=== PATIENT | male | born 1980 | race African-American/Black ===

== ENCOUNTER 2019-09-21 07:17 | Emergency (ER) | payer SELFPAY ==
--- NOTE | 2019-09-21 08:01 | ER Document Report ---
HPI - HPI Time Seen by Provider: 09/21/19 08:00 Pain Level: 5 Notes: 30-year-old male presents the ED for evaluation of dysuria with urination 2 days ago. Patient states he had unprotected sexual intercourse with a new partner. Also is reporting dental pain in his right upper mouth that started about a week ago. No zlso-dhw-gybbjsr medications have been tried. Patient has not tried any zgat-nlu-zwldvus medications. Reports he is a non-smoker. Denies fevers, c hills, chest pain,palpitations, shortness of breath, dyspnea, nausea, vomiting, diarrhea, abdominal pain, hematuria,blurred vision, double vision, loss of vision, speech changes, LH, dizziness, syncope, headaches, wheezing, ST, URI, neck pain, weakness, bowel or bladder dysfunction, saddle anesthesia, numbness or tingling in bilateral upper or lower extremities equally, muscle paralysis, weakness in bilateral upper or lower extremities equally or rash. - REPRODUCTIVE Reproductive: DENIES: : Past Medical History - General Information source: Patient - Social History Smoking Status: Current Every Day Smoker Chew tobacco use (# tins/day): No Frequency of alcohol use: Occasional Drug Abuse: Marijuana Family History: Reviewed & Not Pertinent Patient has suicidal ideation: No Patient has homicidal ideation: No Vertical Provider Document - CONSTITUTIONAL Agree With Documented VS: Yes Exam Limitations: No Limitations General Appearance: WD/WN Notes: PHYSICAL EXAMINATION:reviewed vital signs by RN GENERAL: Well-appearing, well-nourished and in no acute distress. HEAD: Atraumatic, normocephalic. EYES: Pupils equal round and reactive to light, extraocular movements intact, sclera anicteric, conjunctiva are normal. ENT: Nares patent, oropharynx clear without exudates. Moist mucous membranes. #2 gingiva with swelling, erythema and induration. No drainage or open wounds. No fluctuance. No facial swelling. Poor oral dentition, right upper jaw with mild dental caries, no definite swelling or effusion. NECK: Normal range of motion, supple without lymphadenopathy LUNGS: Breath sounds clear to auscultation bilaterally and equal. No wheezes rales or rhonchi. HEART: Regular rate and rhythm without murmurs ABDOMEN: Soft, nontender, nondistended abdomen. No guarding, no rebound. No masses appreciated. Musculoskeletal: Normal range of motion, no pitting or edema. No cyanosis. NEUROLOGICAL: Cranial nerves grossly intact. Normal speech, normal gait. Normal sensory, motor exams PSYCH: Normal mood, normal affect. SKIN: Warm, Dry, normal turgor, no rashes or lesions noted. - INFECTION CONTROL TRAVEL OUTSIDE OF THE [place] IN LAST 30 DAYS: No Course - Re-evaluation Re-evalutation: 09/21/19 12:10 Afebrile vital stable no distress. Patient treated with azithromycin 1 g and Rocephin 250 mg IM for treatment of chlamydia and gonorrhea. Do not engage in sexual intercourse for 7-10 days after treatment. Advised that partner needs to be treated as well so you are not reinfected. Pt verbalizes that understands the risks that come with having unprotected sex. discussed safe sex, using protection. pt was tx'd for G/C at this visit. advised to have protected sex always, go to [facility]CP of the [facility] for further blood testing for HIV, hepatitis C, etc. Pt verbalized understanding of these instructions and agreed with plan of care. After performing a Medical Screening Examination, I estimate there is LOW risk for ACUTE APPENDICITIS, BOWEL OBSTRUCTION, ACUTE CHOLECYSTITIS, PERFORATED DIVERTICULITIS, INCARCERATED HERNIA, PANCREATITIS, TESTICULAR TORSION or PERFORATED ULCER, thus I consider the discharge disposition reasonable. Also, there is no evidence or peritonitis, sepsis, or toxicity. I have reevaluated this patient multiple times and no significant life threatening changes are noted. The patient and I have discussed the diagnosis and risks, and we agree with discharging home with close follow-up wi th the understanding that symptoms and presentations can change. We also discussed returning to the Emergency Department immediately if new or worsening symptoms occur. We have discussed the symptoms which are most concerning (e.g., bloody stool, fever, changing or worsening pain, intractable vomiting - standard verbal up date) that necessitate immediate return. 09/21/19 12:13 Patient did test positive for chlamydia and was treated in-house for G/C - Vital Signs Vital signs: Temp Pulse Resp BP Pulse Ox 97.5 F 79 16 122/67 98 09/21/19 07:22 09/21/19 07:22 09/21/19 07:22 09/21/19 07:22 09/21/19 07:22 Discharge - Discharge Clinical Impression: Dental caries, STD exposure, Dysuria Condition: Stable Disposition: HOME, SELF-CARE Instructions: Dentist, Arnol ([facility] [place]), Toothache ([facility] [place]) Additional Instructions: you have been treated for chlamydia and gonorrhea today based on clinical findings, the ER will call you with the official results. You have been treated with azithromycin 1 g and Rocephin 250 mg IM for treatment of chlamydia and gonorrhea. Do not engage in sexual intercourse for 7- 10 days after treatement. discussed safe sex, using protection. pt was tx'd for G/C at this visit. Advised to have protected sex always, go to PCP of the [facility] Dept for further blood testing for HIV, hepatitis C, etc. Take penicillin twice a day for 10 days, please follow-up with the dentist Prescriptions: Penicillin V Potassium [Penicillin Vk 500 mg Tablet] 500 mg PO BID #20 tablet Forms: Return to Work Referrals: QUINTEN OSBORN MD [ACTIVE STAFF] - Follow up as needed
[2019-09-21] MEDS ORDERED: AZITHROMYCIN 1 GM SUSP PACKET PO ONE (08:25)
[2019-09-21] MEDS ORDERED: CEFTRIAXONE INJ 250 MG VIAL IM ONE (08:25)
[2019-09-21] MEDS ORDERED: LIDOCAINE 1% INJ-PF (10 MG/ML) 30 ML SDV INJ ONE (08:25)
[2019-09-21 09:24] LABS: APPEARANCE,URINE CLEAR; BILIRUBIN,URINE NEGATIVE (NEGATIVE); COLOR,URINE YELLOW; GLUCOSE, URINE NEGATIVE (NEGATIVE); KETONES,URINE NEGATIVE (NEGATIVE); LEUKOCYTE ESTERASE,URINE TRACE (NEGATIVE); NITRITE,URINE NEGATIVE (NEGATIVE); PROTEIN,URINE NEGATIVE (NEGATIVE); URINE SPECIFIC GRAVITY 1.018
[2019-09-21 09:45] VITALS: BP 122/68
[2019-09-21 10:31] LABS: CHLAM PCR DETECTED (NOT DETECT)
== END 2019-09-21 09:46 | disposition home or self-care (01) ==
LOC: EDSEX → ER 07:17
DX: R30.0 Dysuria (principal); K02.9 Dental caries, unspecified; F17.200 Nicotine dependence, unspecified, uncomplicated; Z20.2 Contact with and (suspected) exposure to infections with a predominantly sexual mode of transmission
CPT/HCPCS: 87086; 81001; 87491; 87591; J3490; Q0144; J0696; 96374; 96375; 99283